=== PATIENT | female | born 2000 | race Caucasian/White ===

== ENCOUNTER 2022-06-13 11:59 | Emergency (ER) | payer MEDICAID, SELFPAY ==
--- NOTE | ~2022-06-13 | CT_ITS ---
EXAMINATION: CT HEAD WITHOUT CONTRAST CLINICAL INFORMATION: Head injury. Headache. COMPARISON: None. TECHNIQUE: Contiguous axial imaging was performed from the skull base to vertex without intravenous contrast. This CT examination was performed using dose optimization techniques as appropriate, variously including the following: * Automated exposure control * Adjustment of mA and/or kV according to patient size (this includes techniques or standardized protocols for targeted exams where dose is matched to indication/reason for exam; i.e. extremities or head) Use of iterative reconstruction technique DLP: 639 mGy-cm. FINDINGS: There is no evidence of acute intracranial hemorrhage or territorial infarction. No abnormal mass effect or midline shift is seen. [place] to white matter differentiation is well preserved. No extra-axial fluid collections are identified. No hydrocephalus. No significant volume loss. There is no abnormal attenuation within the brain parenchyma. The osseous structures and soft tissues are normal. The mastoid air cells and visualized portions of the paranasal sinuses are well aerated. CT/CT head/brain wo IV con IMPRESSION: No acute intracranial pathology.
[2022-06-13 12:07] VITALS: BP 111/63; PULSE 74; RESP 15; TEMP 36.6; O2SAT 99; BMI 25.1
--- NOTE | 2022-06-13 12:07 | ED_ITS ---
HPI - Headache General Chief Complaint: Headache <Lashae Gagnon CNP - Last Filed: 06/13/22 12:12> Stated Complaint: Concussion S/P Injury 06/10/22 <Lashae Gagnon CNP - Last Filed: 06/13/22 12:12> Time Seen by Provider: 06/13/22 12:29 <Lashae Gagnon CNP - Last Filed: 06/13/22 12:12> Source: patient <Francine Barcenas NP - Last Filed: 06/13/22 14:43> Mode of arrival: ambulatory <Francine Barcenas NP - Last Filed: 06/13/22 14:43> Limitations: no limitations <Francine Barcenas NP - Last Filed: 06/13/22 14:43> History of Present Illness HPI Narrative: 21-year-old female previously healthy here with complaints of headache. Patient reports on Sunday she was snowboarding and was helmeted. She fell backwards landing on her buttocks. Denies hitting her head or loss of consciousness. Patient reports she felt her head jerk back and forth. since then she has had headache, muffled hearing left side. no nausea, vomiting, vision changes, neck pain, dizziness. Patient denies any other injury. No history of AC use. No history of concussions. <Francine Barcenas NP - Last Filed: 06/13/22 14:43> Related Data Allergies/Adverse Reactions: Allergies Allergy/AdvReac Type Severity Reaction Status Date / Time No Known Allergies Allergy Unverified 01/22/20 18:30 [No Known Allergies*] <Lashae Gagnon CNP - Last Filed: 06/13/22 12:12> Review of Systems Review of Systems: Yes all other systems are reviewed and are negative <Francine Barcenas NP - Last Filed: 06/13/22 14:43> Constitutional: Constitutional: Reports no additional constitutional complaints, Denies body ache(s), Denies chills, Denies fever(s), Reports headache(s) and Denies weakness <Francine Barcenas NP - Last Filed: 06/13/22 14:43> Eyes: Eyes: Reports no additional eye complaints and Denies change in vision <Francine Barcenas POUNCING MACHINE OPERATOR - Last Filed: 06/13/22 14:43> ENT: Reports system reviewed and no additional complaints, except as documented, Denies dizziness, Denies ear discharge, Denies otalgia, Reports headache(s), Reports hearing loss, Denies nasal congestion, Denies nasal discharge and Denies neck pain <Francine Barcenas POUNCING MACHINE OPERATOR - Last Filed: 06/13/22 14:43> Cardiovascular: Cardiovascular: Reports no additional cardiovascular complaints, Denies chest pain, Denies leg edema and Denies dyspnea <Francine Barcenas, POUNCING MACHINE OPERATOR - Last Filed: 06/13/22 14:43> Respiratory: Respiratory: Reports no additional respiratory complaints, Denies cough and Denies dyspnea <Francine Barcenas, POUNCING MACHINE OPERATOR - Last Filed: 06/13/22 14:43> Gastrointestinal: Gastrointestinal: Reports no additional gastrointestinal complaints, Denies abdominal pain, Denies diarrhea, Denies nausea and Denies vomiting <Francine Barcenas POUNCING MACHINE OPERATOR - Last Filed: 06/13/22 14:43> Genitourinary: Genitourinary: Reports no additional female genitourinary complaints and Denies urinary incontinence <Francine Barcenas POUNCING MACHINE OPERATOR - Last Filed: 06/13/22 14:43> Musculoskeletal: Musculoskeletal: Reports no additional musculoskeletal complaints, Denies back pain, Denies arthralgias, Denies joint swelling, Denies neck pain, Denies numbness and Denies tingling <Francine Barcenas POUNCING MACHINE OPERATOR - Last Filed: 06/13/22 14:43> Integumentary/Breasts: Skin/Breast: Reports system reviewed and no additional complaints, except as docu and Denies rash <Francine Barcenas POUNCING MACHINE OPERATOR - Last Filed: 06/13/22 14:43> Neurologic: Reports system reviewed and no additional complaints, except as documented, Denies Abnormal speech present, Denies dizziness, Reports h eadache(s), Denies numbness, Denies tingling and Denies weakness <Francine Barcenas POUNCING MACHINE OPERATOR - Last Filed: 06/13/22 14:43> [facility] Past Medical History Attestation statement: The following information was validated with the patient. <Francine Barcenas NP - Last Filed: 06/13/22 14:43> Source: old records reviewed and nursing notes reviewed <Francine Barcenas NP - Last Filed: 06/13/22 14:43> Social History Social History: Social History Advance Directives: No Advance Directives Information Provided: No <Lashae Gagnon CNP - Last Filed: 06/13/22 12:12> Physical Exam Vital Signs: Vital Signs: Last Vital Signs Temp 98 F 06/13/22 12:07 Pulse 74 06/13/22 12:07 Resp 15 06/13/22 12:07 BP 111/63 06/13/22 12:07 Pulse Ox 99 06/13/22 12:07 O2 Del Method 06/13/22 12:07 BMI result Body Mass Index 25.1 <Lashae Gagnon CNP - Last Filed: 06/13/22 12:12> Vital Signs: Last Vital Signs Temp 98 F 06/13/22 12:07 Pulse 74 06/13/22 12:07 Resp 15 06/13/22 12:07 BP 111/63 06/13/22 12:07 Pulse Ox 99 06/13/22 12:07 O2 Del Method 06/13/22 12:07 BMI result Body Mass Index 25.1 <Francine Barcenas NP - Last Filed: 06/13/22 14:43> Const: General: cooperative, healthy appearing, comfortable and no acute distress <Francine Barcenas NP - Last Filed: 06/13/22 14:43> Orientation/consciousness: patient oriented x3 <Francine Barcenas NP - Last Filed: 06/13/22 14:43> Limitations: no limitations <Francine Barcenas NP - Last Filed: 06/13/22 14:43> HEENT: Head: Yes normal to inspection, No Chiu's sign and No raccoon eyes <Francine Barcenas NP - Last Filed: 06/13/22 14:43> Ears: hearing grossly normal bilaterally and TM's normal bilaterally <Francine Barcenas POUNCING MACHINE OPERATOR - Last Filed: 06/13/22 14:43> General nose exam: Normal external nose present <Francine Barcenas POUNCING MACHINE OPERATOR - Last Filed: 06/13/22 14:43> Face and sinus: Yes normal facial exam <Francine Barcenas POUNCING MACHINE OPERATOR - Last Filed: 06/13/22 14:43> Mouth: Normal oral and palatal mucosa present <Francine Barcenas POUNCING MACHINE OPERATOR - Last Filed: 06/13/22 14:43> Throat: Yes posterior oropharynx normal <Francine Barcenas, POUNCING MACHINE OPERATOR - Last Filed: 06/13/22 14:43> Eyes: General: appearance normal, both eyes and all related structures <Francine Barcenas POUNCING MACHINE OPERATOR - Last Filed: 06/13/22 14:43> Pupils: Equal, round and reactive pupils present <Francine Barcenas POUNCING MACHINE OPERATOR - Last Filed: 06/13/22 14:43> Neck: Other: No cervical midline tenderness, step-offs or deformities <Francine Barcenas POUNCING MACHINE OPERATOR - Last Filed: 06/13/22 14:43> Neck: Yes normal visual inspection, Yes full ROM, Yes no lymphadenopathy and Yes no meningeal signs <Francine Barcenas POUNCING MACHINE OPERATOR - Last Filed: 06/13/22 14:43> Chest: Chest palpation & inspection: normal inspection of the chest <Francine Barcenas POUNCING MACHINE OPERATOR - Last Filed: 06/13/22 14:43> Resp: Effort & Inspection: normal respiratory effort <Francine Barcenas POUNCING MACHINE OPERATOR - Last Filed: 06/13/22 14:43> Auscultation: clear to auscultation bilaterally <Francine Barcenas POUNCING MACHINE OPERATOR - Last Filed: 06/13/22 14:43> Cardio: Rate: regular rate <Francine Barcenas POUNCING MACHINE OPERATOR - Last Filed: 06/13/22 14:43> Rhythm: regular rhythm <Francine Barcenas POUNCING MACHINE OPERATOR - Last Filed: 06/13/22 14:43> Peripheral pulses: Peripheral pulses 2+ throughout <Francine Barcenas POUNCING MACHINE OPERATOR - Last Filed: 06/13/22 14:43> GI: Inspection: Yes normal to inspection <Francineisabell Barcenas POUNCING MACHINE OPERATOR - Last Filed: 06/13/22 14:43> Palpation (GI): Soft to palpation and nontender <Francineisabell Barcenas POUNCING MACHINE OPERATOR - Last Filed: 06/13/22 14:43> Auscultation: normal bowel sounds <Francineisabell Barcenas POUNCING MACHINE OPERATOR - Last Filed: 06/13/22 14:43> Back/Spine/Pelvis: Thoracic/Lumbar Spine: thoracic and lumbar spine normal to inspection <Francineisabell Barcenas POUNCING MACHINE OPERATOR - Last Filed: 06/13/22 14:43> Skin: General skin exam: no rashes or lesions noted <Francine Barcenas POUNCING MACHINE OPERATOR - Last Filed: 06/13/22 14:43> Neuro: General: patient oriented x3, moves all extremities, no meningeal signs, no focal motor deficits and normal sensation to monofilament <Francineisabell Barcenas POUNCING MACHINE OPERATOR - Last Filed: 06/13/22 14:43> Cranial nerves: Yes CN's II-XII intact bilaterally, Yes Equal, round and reactive pupils present, Yes Bilaterally intact EOM present, Yes Nystagmus not present, Yes Normal facial strength present and Yes Midline tongue present <Francine Barcenas POUNCING MACHINE OPERATOR - Last Filed: 06/13/22 14:43> Cognition (Neuro): normal cognition <Francine Barcenas POUNCING MACHINE OPERATOR - Last Filed: 06/13 14:43> Speech: No Abnormal speech present <Francine Barcenas POUNCING MACHINE OPERATOR - Last Filed: 06/13/22 14:43> Gait exam (Neuro): Normal gait present <Frnacineisabell Barcenas POUNCING MACHINE OPERATOR - Last Filed: 06/13/22 14:43> Motor exam (neuro): 5/5 motor strength present throughout <Francine Barcenas POUNCING MACHINE OPERATOR - Last Filed: 06/13/22 14:43> Sensory Exam: Normal double simultaneous stimulation for sensation <Francine Barcenas POUNCING MACHINE OPERATOR - Last Filed: 06/13/22 14:43> Coordination: [id number] test normal, jhqr-[id number] test normal and tandem gait normal <Francine Barcenas POUNCING MACHINE OPERATOR - Last Filed: 06/13/22 14:43> Extrem: General: Yes normal to inspection <Francine Barcenas NP - Last Filed: 06/13/22 14:43> Course Course Course Narrative: This is an RME: Additional HPI, ROS, PE not included below will be deferred to primary provider. Patient is a 21 year old femalte who present to the ED with personal concern for a concussion. Today awoke with a severe headache, took Tylenol with some relief initially but returning at this time 9/10, intermittent blurred vision, muffled hearing to the right ear. 3 days ago, sustained a fall, whiplash , does not think that she struck her head. Denies a nticoagulants. Referred to ED by her PCP. PE: No focal neurological deficits. <Lashae Gagnon CNP - Last Filed: 06/13/22 12:12> Reevaluation(s) Reevaluation #1: CT head is negative. Likely concussion. normal neuro, tolerating p.o.. Reviewed concussion care at home. Reviewed worrisome signs and symptoms of when to return to the emergency room. Comfortable plan for discharge home. <Francine Barcenas NP - Last Filed: 06/13/22 14:43> Medical Decision Making Medical Decision Making MDM Narrative: 21 yo female here with headache, muffled hearing left side after fall Sunday while snowboarding. there was no reports of head injury or head strike them. No loss of consciousness. Patient was helmeted. Patient denies any p revious history of concussions. On arrival patient with normal neurological exam. No focal findings. Will check urine , CT head <Francine Barcenas NP - Last Filed: 06/13/22 14:43> Differential Diagnosis Differential Diagnoses: The differential diagnosis associated with the presentation includes <Francine Barcenas NP - Last Filed: 06/13/22 14:43> concussion, intracranial hemorrhage less likely <Francine Barcenas NP - Last Filed: 06/13/22 14:43> Lab Data Labs: Lab Results 06/13/22 Range/Units 12:52 Urine Test NEGATIVE (NEGATIVE) <Lashae Gagnon CNP - Last Filed: 06/13/22 12:12> Lab Results 06/13/22 Range/Units 12:52 Urine Test NEGATIVE (NEGATIVE) <Francine Barcenas NP - Last Filed: 06/13/22 14:43> Independent Interpretation I performed an independent interpretation of an: CT Scan <Francine Barcenas NP - Last Filed: 06/13/22 14:43> Interpretation: I independently reviewed the CT scan and agree with radiologist reading <Francine Barcenas NP - Last Filed: 06/13/22 14:43> Radiology Impression Discussion of test interpretation with radiology: I have reviewed the radiologist's reading. <Francine Barcenas NP - Last Filed: 06/13/22 14:43> Radiologist Impression: FINDINGS: There is no evidence of acute intracranial hemorrhage or territorial infarction. No abnormal mass effect or midline shift is seen. [place] to white matter differentiation is well preserved. No extra-axial fluid collections are identified. No hydrocephalus. No significant volume loss. There is no abnormal attenuation within the brain parenchyma. The osseous structures and soft tissues are normal. The mastoid air cells and visualized portions of the paranasal sinuses are well aerated. ? CT/CT head/brain wo IV con IMPRESSION: No acute intracranial pathology. <Francine Barcenas NP - Last Filed: 06/13/22 14:43> Discharge Plan Discharge Clinical Impression: Concussion <Lashae Gagnon CNP - Last Filed: 06/13/22 12:12> Patient Disposition: Home, Self-Care <Lashae Gagnon CNP - Last Filed: 06/13/22 12:12> Instructions: Concussion (ED) <Lashae Gagnon CNP - Last Filed: 06/13/22 12:12> Additional Instructions: your CT scan shows no bleeding. you have a concussion. get plenty of rest and limit screen time take Motrin or Tylenol for pain as needed return for worsening symptoms <Lashae Gagnon CNP - Last Filed: 06/13/22 12:12> Referrals: Marita Whitt, POUNCING MACHINE OPERATOR [Primary Care Provider] - 1 week ( for persistent symptoms) <Lashae Gagnon CNP - Last Filed: 06/13/22 12:12> Stand Alone Forms: Work/School Release <Lashae Gagnon, ELIAS - Last Filed: 06/13/22 12:12>
--- OUTSIDE RECORDS SUMMARY | 2022-06-13 12:45 | XMS_ITS | Continuity of Care Document ---
:2000 Author Organization [facility] Address [address] [place] [address]- Care Team Providers Name Role Phone Sai OLIVIA, Cyndi Balderas Primary Care Physician Encounter [facility] Date(s): 05/30/21 - 06/06/21 [facility] [address] [place] [phone]- Encounter Diagnosis Oral contraceptive use (Discharge Diagnosis) - 05/30/21 Attending Physician: Marita Whitt NP Allergies, Adverse Reactions, Alerts No Known Allergies Immunizations Given and Recorded Vaccine Date Status Refusal Reason SARS-CoV-2 (COVID-19) mRNA-1273 vaccine 09/14/20 Recorded SARS-CoV-2 (COVID-19) mRNA-1273 vaccine 08/17/20 Recorded influenza virus vaccine, inactivated 03/03/20 Recorded meningococcal group B vaccine 08/23/18 Recorded meningococcal group B vaccine 02/12/18 Recorded tetanus-diphtheria toxoids (Td) 12/13/17 Recorded Human Papillomavirus Vaccine 01/21/16 Recorded Human Papillomavirus Vaccine 12/30/14 Recorded Hepatitis A Pediatric Vaccine 12/30/14 Recorded Medications ethinyl estradiol-norgestimate 35 mcg-0.25 mg oral tablet 1 tablet, By Mouth, Daily, # 84 tablet, 0 Refills, Maintenance, 05/30/21 15:52:00 EST, Tablet, [facility]/pharmacy #[id number], Partial fill upon patient request if the prescription is for a schedule II opioid drug., 1 tablet By Mouth Daily Start Date: 05/30/21 Status: OrderedSprintec 1 tablet, By Mouth, Daily, 0 Refills, Maintenance, 12/17/17 16:14:20 EDT Start Date: 12/17/17 Status: Ordered Problem List Condition Effective Dates Status Health Status Informant Oral contraceptive use(Confirmed) Active Diagnosis Diagnosis Type Effective Dates Health Clinical Infor mant Status Service Oral contraceptive Discharge 05/30/21 use Diagnosis Social History Social History Type Response Smoking Status Never smoker entered on: 12/17/17 Sex
--- OUTSIDE RECORDS SUMMARY | 2022-06-13 12:45 | XMS_ITS | Continuity of Care Document ---
:2000 Author Organization [facility] Address [address] [place] [address]- Care Team Providers Name Role Phone Sai OLIVIA, Cyndi Balderas Primary Care Physician Encounter [facility] Date(s): 05/30/21 - 06/29/21 [facility] [address] [place] [phone]- Attending Physician: Sagrario Skelton Admitting Physician: AdmSagrario echevarria Referring Physician: Admtr, ArSamm Allergies, Adverse Reactions, Alerts No Known Allergies [...] 0 Refills, Maintenance, 05/30/21 15:52:00 EST, Tablet, [facility]/pharmacy #[id number], Partial fill upon patient request if the prescription is for a schedule II opioid drug., 1 tablet By Mouth Daily Start Date: 05/30/21 Status: OrderedSprintec 1 tablet, By Mouth, Daily, 0 Refills, Maintenance, 12/17/17 16:14:20 EDT Start Date: 12/17/17 Status: Ordered Problem List Condition Effective Dates Status Health Status Informant Oral contraceptive use(Confirmed) Active Social History Social History Type Response Smoking Status Never smoker entered on: 12/17/17 Sex
--- OUTSIDE RECORDS SUMMARY | 2022-06-13 12:45 | XMS_ITS | Continuity of Care Document ---
:1999 Author Organization [facility] Address [address] [place] [phone]- Care Team Providers Name Role Phone Marita Whitt NP Primary Care Physician Encounter [facility] [id number] Date(s): 11/22/21 - 11/29/21 [facility] [address] [place] [phone]- Encounter Diagnosis Wart of hand (Discharge Diagnosis) - 11/22/21 Attending Physician: Marita Whitt NP Allergies, Adverse Reactions, Alerts No Known Allergies Immunizations Given and Recorded Vaccine Date Status Refusal Reason influenza virus vaccine, inactivated 05/31/21 Recorded influenza virus vaccine, inactivated 03/03/20 Recorded SARS-CoV-2 (COVID-19) mRNA-1273 vaccine 05/31/21 Recorded SARS-CoV-2 (COVID-19) mRNA-1273 vaccine 09/14/20 Recorded SARS-CoV-2 (COVID-19) mRNA-1273 vaccine 08/17/20 Recorded SARS-CoV-2 (COVID-19) mRNA-1273 vaccine 08/05/20 Recorded meningococcal group B vaccine 08/23/18 Recorded meningococcal group B vaccine 02/12/18 Recorded tetanus-diphtheria toxoids (Td) 12/13/17 Recorded Human Papillomavirus Vaccine 01/21/16 Recorded Human Papillomavirus Vaccine 12/30/14 Recorded Hepatitis A Pediatric Vaccine 12/30/14 Recorded Medications ethinyl estradiol-norgestimate 35 mcg-0.25 mg oral tablet 1 tablet, By Mouth, Daily, # 84 tablet, 3 Refills, Maintenance, 08/08/21 16:19:00 EDT, Tablet, [id number], Partial fill upon patient request if the prescription is for a schedule II opioid drug., 1 tablet By Mouth Daily Start Date: 08/08/21 Status: OrderedSprintec 1 tablet, By Mouth, Daily, 0 Refills, Maintenance, 12/17/17 16:14:20 EDT Start Date: 12/17/17 Status: Ordered Problem List Condition Effective Dates Status Health Status Informant Oral contraceptive use(Confirmed) Active Diagnosis Diagnosis Type Effective Dates Health Status Clinical In formant Service Wart of hand Discharge 11/22/21 Diagnosis Vital Signs Most recent to oldest [Reference Range]: 1 Weight 71.2 kg (11/22/21 4:03 PM) Oxygen Saturation [94-100 %] 99 % (11/22/21 4:03 PM) Pulse Rate [55-90 bpm] 64 bpm (11/22/21 4:03 PM) Blood Pressure [90-138/55-84 mm Hg] 102/66 mm Hg (11/22/21 4:03 PM) Temperature [96.8-100.4 DegF] 97.2 DegF (11/22/21 4:03 PM) Mode of Delivery (Oxygen) Room air (11/22/21 4:03 PM) Blood pressure sites Arm, right (11/22/21 4:03 PM) Temperature Route Temporal (11/22/21 4:03 PM) Weight Obtained Via Standing scale (11/22/21 4:03 PM) Social History Social History Type Response Smoking Status Never smoker entered on: 12/17/17 Sex
--- OUTSIDE RECORDS SUMMARY | 2022-06-13 12:45 | XMS_ITS | Continuity of Care Document ---
:1999 Author Organization [facility] Address [address] [place] [address]- Care Team Providers Name Role Phone Jose Eduardo CATALAN, Marita Liriano Primary Care Physician Encounter [id number] Date(s): 11/22/21 - 12/22/21 [facility] [address] [place] [address]- Attending Physician: Sagrario Skelton Admitting Physician: AdmtrSagrario Referring Physician: Admtr, Ar8 Allergies, Adverse Reactions, Alerts No Known Allergies [...] 3 Refills, Maintenance, 08/08/21 16:19:00 EDT, Tablet, [facility]/pharmacy #[id number], Partial fill upon patient request if the [...]
--- OUTSIDE RECORDS SUMMARY | 2022-06-13 12:45 | XMS_ITS | Continuity of Care Document ---
:1999 Author Organization [facility] Address [address] [place] [phone]- Care Team Providers Name Role Phone Sai OLIVIA, Cyndi Balderas Primary Care Physician Encounter [facility] Date(s): 05/05/21 - 06/04/21 [facility] [address] [place] [address]- Allergies, Adverse Reactions, Alerts No Known Allergies [...] 0 Refills, Maintenance, 05/30/21 15:52:00 EST, Tablet, [id number], Partial fill upon patient request if the [...]
--- OUTSIDE RECORDS SUMMARY | 2022-06-13 12:45 | XMS_ITS | Continuity of Care Document ---
:2000 Author Organization [facility] Address [address] [place], [place] [phone]- Care Team Providers Name Role Phone Marita Whitt NP Primary Care Physician Encounter [facility] [id number] Date(s): 08/08/21 - 08/15/21 [facility] [address] [place] [phone]- Encounter Diagnosis Oral contraceptive use (Discharge Diagnosis) - 08/08/21 Annual physical exam (Discharge Diagnosis) - 08/08/21 Attending Physician: Martia Whitt NP Allergies, Adverse Reactions, Alerts No Known Allergies Immunizations Given and Recorded Vaccine Date Status Refusal Reason influenza virus vaccine, inactivated 05/31/21 Recorded influenza virus vaccine, inactivated 03/03/20 Recorded SARS-CoV-2 (COVID-19) mRNA-1273 vaccine 05/31/21 Recorded SARS-CoV-2 (COVID-19) mRNA-1273 vaccine 09/14/20 Recorded SARS-CoV-2 (COVID-19) mRNA-1273 vaccine 08/17/20 Recorded meningococcal group B vaccine 08/23/18 Recorded meningococcal group B vaccine 02/12/18 Recorded tetanus-diphtheria toxoids (Td) 12/13/17 Recorded Human Papillomavirus Vaccine 01/21/16 Recorded Human Papillomavirus Vaccine 12/30/14 Recorded Hepatitis A Pediatric Vaccine 12/30/14 Recorded Medications ethinyl estradiol-norgestimate 35 mcg-0.25 mg oral tablet 1 tablet, By Mouth, Daily, # 84 tablet, 3 Refills, Maintenance, 08/08/21 16:19:00 EDT, Tablet, [id number], Partial fill upon patient request if the [...] Infor mant Status Service Oral contraceptive Discharge 08/08/21 use Diagnosis Annual physical Discharge 08/08/21 exam Diagnosis Vital Signs Most recent to oldest [Reference Range]: 1 Weight 75.8 kg (08/08/21 4:06 PM) Oxygen Saturation [94-100 %] 98 % (08/08/21 4:06 PM) Pulse Rate [55-90 bpm] 79 bpm (08/08/21 4:06 PM) Blood Pressure [90-138/55-84 mm Hg] 110/72 mm Hg (08/08/21 4:06 PM) Temperature [96.8-100.4 DegF] 97.2 DegF (08/08/21 4:06 PM) Mode of Delivery (Oxygen) Room air (08/08/21 4:06 PM) Blood pressure sites Arm, right (08/08/21 4:06 PM) Temperature Route Temporal (08/08/21 4:06 PM) Weight Obtained Via Standing scale (08/08/21 4:06 PM) Social History Social History Type Response Smoking Status Never smoker entered on: 12/17/17 Sex
--- OUTSIDE RECORDS SUMMARY | 2022-06-13 12:45 | XMS_ITS | Continuity of Care Document ---
:2000 Author Organization [facility] Address [address] [place] [address]- Care Team Providers Name Role Phone Sai OLIVIA, Cyndi Balderas Primary Care Physician Encounter [facility] Date(s): 05/05/21 - 07/20/21 [facility] [address] [place], [place] [phone]- Attending Physician: Not on Staff, Attending MD Allergies, Adverse Reactions, Alerts No Known Allergies [...] Refills, Maintenance, 05/30/21 15:52:00 EST, Tablet, [id number], Partial fill upon patient request if the [...]
[2022-06-13 13:11] LABS: UPreg QC Valid YES; Urine Pregnancy NEGATIVE (NEGATIVE)
== END 2022-06-13 14:57 | disposition home or self-care (01) ==
PROVIDERS: Nurse Practitioner Family; Emergency Provider Emergency Medicine; PCP Nurse Practitioner Family
DX: S06.0X0A Concussion without loss of consciousness, initial encounter (principal); R51.9 Headache, unspecified; X58.XXXA Exposure to other specified factors, initial encounter; Y93.9 Activity, unspecified; Y92.9 Unspecified place or not applicable; Y99.9 Unspecified external cause status
CPT/HCPCS: 70450; 81025; 99282; 99284

== ENCOUNTER 2025-04-09 11:55 | Outpatient (AMB) | payer OTHER, SELFPAY ==
--- NOTE | 2025-04-09 12:02 | MHC.PC.OV ---
Vital Signs 04/09/25 12:07 Height 5 ft 8 in Weight 181 lb 4 oz BMI 27.6 BP 98/60 Blood Pressure Location Lt brachial Position Sitting Respiration 15 Pulse 85 Pulse Source Pulse Oximeter Temp 97.6 F Temp Source Temporal Artery Scan Pulse Oximetry (%) 97 Oxygen Delivery Method Room Air Intake Visit Reasons: CPE? Intake Note: Cinthya presents in the office today to establish care. Election Supervisor Required: No Is last menstrual period known: Yes Last menstrual period: 03/30/25 Post menopausal: No Patient : No Allergies No Known Allergies (No Known Allergies*) Allergy (Unverified 04/09/25 12:05) Tobacco use date assessed: 04/09/25 Dental Screening Dental Screen Date: 04/09/25 Did you have a dental visit in the last 12 months?: Yes Did you have a dental problem in the last 6 months where you did not have access to dental care?: No Was dental information given to patient?: Patient has dentist HPI HPI Comments History of Present Illness Details This is a 24-year-old female presenting to establish care. She is due for a physical. She works as a high school physical education teacher. Manager Hris: Mitali Barksdale NP. Eye and dental exams: She will schedule an eye exam. Dental is up-to-date. Last tetanus immunization was when she was bit by one of her students in 2023. Flu vaccine administered today. She has acne on her face. She has tried many [id number] products without improvement. ROS: Constitutional: No unexplained weight loss, fever, chills, fatigue or night sweats. Eyes: No vision changes, blurry vision, double vision, eye pain, eye redness, eye discharge. ENT: No hearing loss, sneezing, congestion, runny nose or sore throat. Respiratory: No shortness of breath, cough or sputum production. Cardiovascular: No chest pain, chest pressure or chest discomfort. No palpitations or pedal edema. Gastrointestinal: No anorexia, nausea, vomiting or diarrhea. No abdominal pain or blood in stool. Genitourinary: No dysuria, hematuria, urinary frequency. Neurologic: No headache, dizziness, syncope, unilateral weakness, ataxia, numbness or tingling in the extremities. Musculoskeletal: No muscle pain, back pain, joint pain or swelling. Hematologic/Lymphatics: No bleeding or bruising. No painful lymph nodes. Skin: see HPI Endocrine: No cold or heat intolerance. No polyuria or polydipsia. Psychiatric: No depression or anxiety. No SI/HI. Physical exam: Constitutional: Alert, in no distress. Head: Normocephalic. Eyes: Pupils are equal, round and reactive to light. Extraocular muscles intact. Ear, Nose and Throat: Canals clear. TMs normal. Normal nasal mucosa. No nasal discharge. No oral lesions. Neck: Supple, Full range of motion. No lymphadenopathy. No palpable thyroid masses. Respiratory: Clear to auscultation. Cardiovascular: S1 S2 regular. No murmurs. No carotid bruits. Gastrointestinal: Abdomen soft, non-tender, non-distended. Normal bowel sounds. No palpable masses. Neurologic: No focal neurological deficits. Symmetric patellar reflexes. Moves all extremities spontaneously. Skin: aceneiform lesions on the chin and perioral area Musculoskeletal: No gross deformities. Normal range of motion. Extremities: Warm and well perfused. No clubbing, cyanosis or edema. Intact peripheral pulses bilaterally. Psychiatric: Normal mood and affect [facility] Medical History (Updated 04/09/25 @ 12:34 by RONAL Morin) Acne vulgaris Routine physical examination Screening for cardiovascular condition Fibroadenoma of right breast Lump of right breast Surgical History (Updated 04/09/25 @ 12:21 by RONAL Morin) History of lumpectomy of right breast Family History (Updated 04/09/25 @ 12:23 by RONAL Morin) Mother Hypertension Maternal Grandmother Clotting disorder Maternal Grandfather Colon cancer Social History (Updated 04/09/25 @ 12:07 by Kirsten Franco [facility]) Housing: House Alcohol intake: current Patient Tobacco Use Status: Never used Tobacco e-Cigarette/Vaping Use: Never Used Second Hand Smoke Exposure: No Use of substances other than those prescribed or required for medical reasons: No Patient : No service: No Current occupational status: employed 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 1. Little interest or pleasure in doing things: not at all 2. Feeling down, depressed, or hopeless: not at all 3. Trouble falling or staying asleep, or sleeping too much: not at all 4. Feeling tired or having little energy: not at all 5. Poor appetite or overeating: not at all 6. Feeling bad about yourself - or that you are a failure or have let yourself or your family down: not at all 7. Trouble concentrating on things, such as reading the newspaper or watching television: not at all 8. Moving or speaking so slowly that other people could have noticed. Or the opposite - being so fidgety or restless that you have been moving around a lot more than usual: not at all 9. Thoughts that you would be better off or of hurting yourself in some way: not at all Total score: 0 Depression Screening Interpretation: Negative Depression Screening Done: Yes 81540 - PHQ-9 Billing: Yes Source: Developed by Drs. Artur Morales, Kiley Zimmerman, Scot Love and colleagues, with an educational joey from [employer]. Thrive Questionnaire Date Thrive assessed: 04/09/25 I am a: Patient What is your living situation today?: I have a steady place to live Within the past 12 months, did the food you bought not last and you didn't have the money to get more?: Never true Within the past 12 months, did you worry whether your food would run out before you got money to buy more?: Never true Do you have trouble paying for medicines?: No Do you have trouble getting transportation to medical appointments?: No Do you have trouble paying your heating and electricity bill?: No Do you have trouble taking care of your child, family member or friend?: No Do you have trouble with day-to-day activities such as bathing, preparing meals, shopping, managing finances, etc.?: No Are you currently unemployed and looking for a job?: No Are you interested in more education?: Yes Please select the resources that you would like help with: None Currently or been in a relationship where the following occur: No concerns reported THRIVE Score: 0 AUDIT C Alcohol Use Questionnaire (AUDIT-C) 1. How often do you have a drink containing alcohol?: 2-4 times a month 2. How many drinks containing alcohol do you have on a typical day when you are drinking?: 3 or 4 3. How often do you have six or more drinks on one occasion?: Less than monthly Total Score: 4 MICHELLE-7 AMB Questionnaire MICHELLE-7 Date MICHELLE - 7 assessed: 04/09/25 Feeling nervous, anxious, or on edge: 1 = Several days Not being able to stop or control worryin = Not at all Worrying too much about different things: 1 = Several days Trouble relaxin = Not at all Being so restless that it is hard to sit still: 0 = Not at all Becoming easily annoyed or irritable: 0 = Not at all Feeling afraid as if something awful might happen: 0 = Not at all Total MICHELLE-7 score (0-4 normal; 5-9 mild; 10-14 moderate; 15-21 severe): 2 Source: Developed by Drs. Artur Morales, Kliey Zimmerman, Scot Love and colleagues, with an educational joey from [employer]. MICHELLE-7 Assessment Billing MICHELLE-7 Assessment Tool: MICHELLE-7 Assessment 57484 Physical exam (Primary Care) Vital Signs: Last Vital Signs Temp 97.6 F 04/09/25 12:07 Pulse 85 04/09/25 12:07 Resp 15 04/09/25 12:07 BP 98/60 04/09/25 12:07 Pulse Ox 97 04/09/25 12:07 Oxygen Delivery Method Room Air 04/09/25 12:07 BMI result Body Mass Index 27.6 Tobacco/Smoking Status: Tobacco use Status Tobacco use date assessed 04/09/25 04/09/25 12:13 Patient Tobacco Use Status Never used Tobacco 04/09/25 12:13 e-Cigarette/Vaping Use Never Used 04/09/25 12:13 PHQ-9: PHQ-9 Score PHQ-9: Total score 0 04/09/25 12:24 Depression Screening Interpretation: Negative Thrive Assessment: Date of Thrive Assessment Date Thrive assessed 04/09/25 04/09/25 12:04 Currently or been in a relationship where the following occur: No concerns reported Office Procedures Flu Questionnaire Does the patient have a severe egg allergy?: No Does the patient have severe life threatening allergies?: No Does the patient have a fever or illness today?: No Has the patient ever had Guillain-Surprise Syndrome?: No Has the patient ever had any past reaction to a flu shot?: No Immunizations Fluarix [id number] (PF) 45 mcg (15 mcg x 3)/0.5 mL IM syringe Performing Provider: RONAL Morin Performing Location: [facility] [place] Family Medicine Administered by: Kirsten Franco CMA on 04/09/25 12:41 Dose Route Admin Location Dispensed Lot Number Expiration Date [facility]isted Living Manager 0.5 mL IM Left Deltoid 0.5 mL [id number] 11/03/25 95215-413-88 Purch VIS Given Date VIS Provided VIS Publication Date 04/09/25 Single Vaccine 24 Eligibility Eligibility Date Funding Source Not [facility] Eligible 04/09/25 Private Coding Level of Care Code New Pt Prev Care 18-39yr(67313 Diagnoses Routine physical examination Z00.00 Screening for cardiovascular condition Z13.6 Acne vulgaris L70.0 Additional Codes MICHELLE-7 Assessment Billing - MICHELLE-7 Assessment Tool: MICHELLE-7 Assessment 15379 ([id number]) PHQ-9 - 74107 - PHQ-9 Billing: Yes ([id number]) Assessment & Plan Assessment & Plan (1) Routine physical examination: Code(s): Z00.00 - Encounter for general adult medical examination without abnormal findings Category: Medical (2) Screening for cardiovascular condition: Code(s): Z13.6 - Encounter for screening for cardiovascular disorders Category: Medical (3) Acne vulgaris: Code(s): L70.0 - Acne vulgaris Category: Medical Plan Patient is seen today for a routine physical. As part of this visit we reviewed the following issues, which are considered and essential part of preventative health in this age group: - Breast Cancer screening - Annual Roll Setter exam - Blood pressure screening - Cholesterol screening - Osteoporosis prevention including calcium/vitamin D intake, weight bearing exercise & smoking cessation - Nutritional and exercise counseling - Counseling of injury prevention including fire prevention, smoke alarms and seat belt usage - Screening for depression - Prevention of and/or testing for infectious diseases - pt declines - Education about skin cancer - Recommendations about immunizations - Recommendation of an eye exam - Screening for substance abuse Trial of topical clindamycin gel. Side effects and administration reviewed. Follow up if there is no improvement. Refer to dermatology. Schedule CPE in 1 year. Orders: Orders Complete Blood Count no Diff Today Z00.00 - Encounter for general adult medical examination without abnormal findings, Z13.6 - Encounter for screening for cardiovascular disorders Comprehensive Met. Panel Today Z00.00 - Encounter for general adult medical examination without abnormal findings, Z13.6 - Encounter for screening for cardiovascular disorders Lipid Panel Today Z00.00 - Encounter for general adult medical examination without abnormal findings, Z13.6 - Encounter for screening for cardiovascular disorders Influenza 1013-1040 Immunization Today Z23 - Encounter for immunization Referrals Dermatology Referral L70.0 - Acne vulgaris Medications: New clindamycin phosphate 1% (Clindagel) Apply once daily in the evening to affected areas. 1 appl topical DAILY 75 mL 0RF
[2025-04-09 12:07] VITALS: BP 98/60; PULSE 85; RESP 15; TEMP 36.4; O2SAT 97; BMI 27.6
== END 2025-04-09 13:07 | disposition home or self-care (01) ==
LOC: HO.HMCFM 11:56
PROVIDERS: PCP Nurse Practitioner Family; Visit Provider Physician Assistant Medical
DX: Z00.00 Encounter for general adult medical examination without abnormal findings (principal); Z13.6 Encounter for screening for cardiovascular disorders; L70.0 Acne vulgaris; Z23 Encounter for immunization

== ENCOUNTER → 2025-04-09 11:55 | Outpatient (BNVA) | payer OTHER, SELFPAY | PROVIDERS: PCP Nurse Practitioner Family; Visit Provider Physician Assistant Medical | DX: Z00.00 Encounter for general adult medical examination without abnormal findings (principal); Z13.6 Encounter for screening for cardiovascular disorders; L70.0 Acne vulgaris; Z13.31 Encounter for screening for depression; Z13.39 Encounter for screening examination for other mental health and behavioral disorders; Z23 Encounter for immunization | CPT/HCPCS: 90471; 90656; 96127 ==